=== PATIENT | female | born 2000 | race Caucasian/White ===

== ENCOUNTER → 2019-03-23 | Outpatient (CLI) | payer OTHER ==
--- NOTE | 2019-03-23 15:24 | RADIOLOGY IMAGING REPORT ---
FACILITY: [facility] PATIENT NAME: FRANCK WADE : [id number] MR: [id number] V: [id number] EXAM DATE: [id number] ORDERING PHYSICIAN: JUICE HOPSON TECHNOLOGIST: Darrick Bush RDMS, FAINA PROCEDURE:US LEFT BREAST COMPARISON:None. INDICATIONS:LT BREAST PAIN AROUND LEFT NIPPLE FINDINGS: In the approximate 12 o'clock position of the Left breast just above the nipple there is an 8 x 14 x 3mm cystic structure may represent a mildly dilated duct. There is no evidence of internal debris or mass. No other sonographic abnormality of the Left breast is seen therefore clinical follow-up recommended for patient's Left breast pain. DIAGNOSTIC CATEGORY 2--BENIGN FINDING. RECOMMENDATIONS: CLINICAL EVALUATION. IMPRESSION: BIRADS 2: Benign finding. Clinical follow-up recommended for patient's Left breast pain. Dictated by: Jazmin Melendrez M.D. on 03/23/2019 at 14:14 Transcribed by: GODFREY on 03/23/2019 at 14:41 Approved by: Jazmin Melendrez M.D. on 03/23/2019 at 15:24 [facility]
== END ==
LOC: MAMO 09:14
PROVIDERS: ATTEND Nurse Practitioner Family
DX: N60.02 Solitary cyst of left breast (principal)

== ENCOUNTER → 2019-03-29 | Outpatient (CLI) | payer OTHER ==
[~2019-03-29] MED LIST: GADOBENATE 529MG/1ML 15ML VIAL IVP ONE
--- NOTE | 2019-03-29 15:56 | RADIOLOGY IMAGING REPORT ---
[place] [facility] [place]IENT NAME: Denise Wang : 2000 MR: [id number] V: [id number] EXAM DATE: ORDERING PHYSICIAN: RUTHIE STORM TECHNOLOGIST: Location: [facility] Patient: Denise Wang : 2000 Visit/Account:[id number] Date of Sevice: 03/29/2019 EXAMINATION: MRI brain without IV contrast MRI brain with IV contrast HISTORY: Neurologic symptoms left side, history of abnormal MRI 2016. Twitching. COMPARISON: None. TECHNIQUE: Multi-planar, multi-sequence brain MRI was performed before and after IV gadolinium. CONTRAST: 12 mL of IV MultiHance gadolinium. FINDINGS: Brain volume: Normal. Sagittal midline structures: Normal. Ventricles: Normal. Acute ischemic changes: No diffusion restriction present to suggest acute ischemia. Hemorrhage: No acute hemorrhage or hemosiderin staining. Masses/edema: None. Enhancement: No abnormal intracranial enhancement. Woodward-white: Negative. White matter: There are a few punctate T2/FLAIR hyperintense lesions in the deep white matter of the left frontal and parietal lobes. These lesions are not oriented perpendicular to the lateral ventri cular surface. Vessels: Normal. Extra-axial: None. Calvarium/scalp: Negative. Skull base: Negative. Visualized sinuses/orbits: Negative. Visualized upper neck: Negative. IMPRESSION: 1. No acute infarct, hemorrhage or intracranial mass lesion. 2. A few small white matter lesions are nonspecific. Differential considerations include the sequel a of chronic migraine headaches, previous inflammation or trauma. Report Dictated By: Hilary Murray MD at 03/29/2019 3:44 PM Report E-Signed By: Hilary Murray MD at 03/29/2019 3:51 PM WSN:[id number]
== END ==
LOC: MRI 01:06
PROVIDERS: ATTEND Physician Assistant
DX: R90.82 White matter disease, unspecified (principal)
CPT/HCPCS: 70553; A9577